=== PATIENT | male | born 1965 | race American Indian/Alaskan Native ===

== ENCOUNTER 2025-02-03 21:30 | Emergency (ER) | payer BC ==
[~2025-02-03] VITALS: Ht 180.3 cm; Wt 85.0 kg
[2025-02-03] MEDS ORDERED: ZESTRIL10 MG PO (21:47)
[2025-02-03] MEDS ORDERED: NITROGLYCERIN 0.4 MG SUBL SL PRN (22:45)
[2025-02-03] MEDS ORDERED: ASPIRIN 81 MG CHEW PO ONE (22:45)
[2025-02-03 23:03] LABS: BASOPHILS 0 % (0.2-1.2); EOSINOPHILS 0 % (0.8-7.0); LYMPHOCYTES 23.9 % (21.8-53.1); MCH 30.4 PG (25.7-32.2); MCHC 33.6 g/dL (32.3-36.5); MCV 90.7 fL (79.0-92.2); MONOCYTES 8.6 % (5.3-12.2); NEUTROPHILS 67.2 % (34.0-67.9); RBC 4.96 M/uL (4.63-6.08)
[2025-02-03 23:08] LABS: BLOOD/HGB, URINE NEGATIVE (Negative); KETONE, URINE TRACE (Negative); LEUK ESTERASE, URINE NEGATIVE (negative); NITRITE, URINE NEGATIVE (negative)
[2025-02-03 23:23] LABS: ALT (SGPT) 24.0 U/L (14-59); AST (SGOT) 16.0 U/L (15-37); GLOMERULAR FILTRATION RATE,EST 70.0 mL/min (>60); PROTEIN, TOTAL 7.0 g/dL (6.4-8.2); UREA NITROGEN 18.0 mg/dL (7-18)
[2025-02-03] MEDS ORDERED: KETOROLAC TROMETHAMINE 30 MG/ML VIAL IV ONE (23:30)
[2025-02-04] MEDS ORDERED: LIDOCAINE HCL 4% 1 EACH PATCH TD ONE (00:45)
[2025-02-04] MEDS ORDERED: HYDROCODONE BIT/ACETAMINOPHEN 5/325 MG 1 TAB HOME.PACK PO ONE (00:45)
[2025-02-04] MEDS ORDERED: CYCLOBENZAPRINE HCL 10 MG HOME.PACK PO ONE (00:45)
[2025-02-04] MEDS ORDERED: LIDODERM1 EACH TOP (00:50)
[2025-02-04] MEDS ORDERED: NAPROSYN500 MG PO (00:50)
[2025-02-04 01:16] VITALS: BP 135/91
--- NOTE | 2025-02-04 18:50 | EKG ---
[facility] [address] [place] [address] [address] [place], [place] [address] Signed Normal sinus rhythm Normal ECG No previous ECGs available Confirmed by Zeinab Small DO ([id number]) on 02/04/2025 6:49:43 PM Electronically Signed By: ZEINAB SMALL DO 02/04/251849 PATIENT NAME: NEYDA DOVER Electrocardiogram DATE OF : 61 PHYSICIAN: ZEINAB SMALL DO REPORT #: [id number] REPORT IS CONFIDENTIAL AND NOT TO BE RELEASED WITHOUT AUTHORIZATION
== END 2025-02-04 01:18 | disposition home or self-care (01) ==
LOC: ED 21:30
PROVIDERS: Internal Medicine
DX: S29.012A Strain of muscle and tendon of back wall of thorax, initial encounter (principal); I10 Essential (primary) hypertension; X50.0XXA Overexertion from strenuous movement or load, initial encounter; Z79.899 Other long term (current) drug therapy
CPT/HCPCS: 36415; 71045; 80053; 81003; 83735; 84484; 85025; 93005; 93010; 96374; 99284-25; A9270; J1885